=== PATIENT | female | born 1950 ===

== ENCOUNTER → 2019-02-12 08:25 | Outpatient (CLI) | payer OTHER, SELFPAY ==
[2019-02-12 09:32] LABS: Alanine Aminotransferase 20 IU/L (9-52); Albumin 4.2 g/dL (3.5-5.0); Albumin Globulin Ratio 1.6 (1.0-2.8); Alkaline Phosphatase 42 U/L (38-126); Aspartate Aminotransferase 23 IU/L (14-36); BUN Creatinine Ratio 11.4 (6-22); Bilirubin Total 0.6 mg/dL (0.2-1.3); Blood Urea Nitrogen 8 mg/dL (7-17); Calcium 8.9 mg/dL (8.4-10.2); Carbon Dioxide 27 mmol/L (22-32); Chloride 101 mmol/L (98-107); Estimated Glomerular Filt Rate > 60.0 mL/min (>60); Globulin 2.6 g/dL (1.7-4.1); Glucose 87 mg/dL (80-110); HEMOLYSIS < 15 (0-50); Potassium 4.1 mmol/L (3.4-5.1); Sodium 137 mmol/L (137-145); Total Protein 6.8 g/dL (6.3-8.2)
[2019-02-12 09:33] LABS: Vitamin D 25 Hydroxy (D3) 27.6 ng/mL (30.0-100.0)
[2019-02-12 09:41] LABS: Free T3, Triiodothyronine Free 5.13 pg/mL (2.77-5.27); Free T4, Direct Thyroxine 1.65 ng/dL (0.78-2.19)
[2019-02-12 09:54] LABS: Thyroid Stimulating Hormone 0.03 uIU/mL (0.47-4.68)
[2019-02-12 10:29] LABS: Folate 5.7 ng/mL (2.76-20.0); Vitamin B12 669 pg/mL (239-931)
== END ==
PROVIDERS: Family Provider Internal Medicine; PCP Internal Medicine; Visit Provider Psychiatry & Neurology Psychiatry
DX: E03.9 Hypothyroidism, unspecified (principal); F31.9 Bipolar disorder, unspecified; Z13.1 Encounter for screening for diabetes mellitus; Z13.6 Encounter for screening for cardiovascular disorders
CPT/HCPCS: 36415; 80053; 82306; 82607; 82746; 84439; 84443; 84481

== ENCOUNTER → 2019-02-26 15:03 | Outpatient (CLI) | payer OTHER, SELFPAY ==
[2019-02-28 16:13] LABS: Fecal Immunochemical Test NOT DETECTED (NOT DETECTED)
== END ==
PROVIDERS: PCP Internal Medicine; Visit Provider Internal Medicine
DX: Z12.11 Encounter for screening for malignant neoplasm of colon (principal)
CPT/HCPCS: 82274

== ENCOUNTER → 2019-04-17 12:09 | Outpatient (CLI) | payer OTHER, SELFPAY ==
--- NOTE | 2019-04-17 12:11 | DI.RAD.S_ITS ---
PROCEDURE: XR SHOULDER RT MIN 2V INDICATIONS: r shoulder pain TECHNIQUE: 3 views of the shoulder were acquired. COMPARISON: None. FINDINGS: Bones: No fractures or dislocations. No suspicious bony lesions. Visualized ribs appear intact. There may be mild degenerative changes of the right shoulder joints. Soft tissues: Homogeneous calcifications overlying the greater tuberosity of the humeral head are present. IMPRESSION: 1. Calcific tendinitis of the right shoulder. 2. Mild degenerative changes of the right shoulder joints. Dictated by: Naldo Hannah M.D. on 04/17/2019 at 11:45 Approved by: Naldo Hannah M.D. on 04/17/2019 at 11:45
== END ==
PROVIDERS: PCP Internal Medicine; Visit Provider Physician Assistant
DX: M25.511 Pain in right shoulder (principal); M75.31 Calcific tendinitis of right shoulder; M19.011 Primary osteoarthritis, right shoulder
CPT/HCPCS: 73030

== ENCOUNTER → 2019-07-26 16:53 | Outpatient (CLI) | payer OTHER, SELFPAY ==
--- NOTE | 2019-07-26 16:55 | DI.MG.S_ITS ---
BILATERAL DIGITAL SCREENING MAMMOGRAM 3D/2D WITH CAD: 07/26/2019 CLINICAL: Routine screening. Comparison is made to exam dated: 01/24/2018 mammogram - [facility]. The tissue of both breasts is heterogeneously dense. This may lower the sensitivity of mammography. Current study was also evaluated with a Computer Aided Detection (CAD) system. No significant masses, calcifications, or other findings are seen in either breast. There has been no significant interval change. IMPRESSION: NEGATIVE There is no mammographic evidence of malignancy. A 1 year screening mammogram is recommended. This exam was interpreted at Station ID: [id number]. NOTE: For mammograms, a report in lay terms will be sent to the patient. Approximately 15% of breast malignancies will not be visualized mammographically. In the management of a palpable breast mass, a negative mammogram must not discourage biopsy of a clinically suspicious lesion. Electronically Signed By: Geraldine harmon/thomas:08/01/2019 22:27:02 letter sent: Normal Exam ACR BI-RADS Category 1: Negative [id number]
== END ==
PROVIDERS: PCP Internal Medicine; Visit Provider Internal Medicine
DX: Z12.31 Encounter for screening mammogram for malignant neoplasm of breast (principal)
CPT/HCPCS: 77063; 77067

== ENCOUNTER → 2020-05-14 13:37 | Outpatient (CLI) | payer OTHER, SELFPAY ==
[2020-05-15 11:23] LABS: Fecal Immunochemical Test Negative (Negative)
== END ==
PROVIDERS: PCP Internal Medicine; Referring Provider Internal Medicine; Visit Provider Internal Medicine
DX: Z12.11 Encounter for screening for malignant neoplasm of colon (principal)
CPT/HCPCS: 82274

== ENCOUNTER → 2020-05-21 07:42 | Outpatient (CLI) | payer OTHER, SELFPAY ==
[2020-05-21 08:24] LABS: Add Manual Diff / Slide Review NO; Basophils Absolute Auto 0 /uL (0-100); Basophils Percent Auto 0.8 % (0-2); Eosinophils Absolute Auto 300 /uL (0-450); Eosinophils Percent Auto 5.2 % (2-4); Hemoglobin 12.8 g/dL (12.0-16.0); Lymphocytes Absolute Auto 1900 /uL (1100-4500); Lymphocytes Percent Auto 38.9 % (25-40); Mean Corpuscular HGB Conc 33.8 % (30-36); Mean Corpuscular Hemoglobin 33.7 PG (26-34); Mean Corpuscular Volume 99.8 fL (80-100); Monocytes Absolute Auto 600 /uL (0-900); Monocytes Percent Auto 11.5 % (3-14); Neutrophils Absolute Auto 2100 /uL (1500-7000); Neutrophils Percent Auto 43.6 % (50-75); Platelet Count 242 X10^3/uL (150-400); Red Cell Distribution Width 12.6 % (11.6-14.8); White Blood Cell Count 4.9 X10^3/uL (4.5-11.0)
[2020-05-21 08:49] LABS: Erythrocyte Sedimentation Rate 4 MM/HR (0-20)
[2020-05-21 09:02] LABS: Albumin 4.1 g/dL (3.5-5.0); Albumin Globulin Ratio 1.8 (1.0-2.8); Alkaline Phosphatase 55 U/L (38-126); Aspartate Aminotransferase 30 IU/L (14-36); BUN Creatinine Ratio 11.9 (6-22); Bilirubin Total 0.5 mg/dL (0.2-1.3); Blood Urea Nitrogen 7 mg/dL (7-17); C-Reactive Protein Quant < 0.5 mg/dL (<1.0); Calcium 9.7 mg/dL (8.4-10.2); Carbon Dioxide 30 mmol/L (22-32); Chloride 103 mmol/L (98-107); Cholesterol 189 mg/dL (140-199); Estimated Glomerular Filt Rate > 60.0 mL/min (>60); Globulin 2.3 g/dL (1.7-4.1); Glucose 93 mg/dL (80-110); HDL Cholesterol 97 mg/dL (40-60); HEMOLYSIS < 15 (0-50); LDL Cholesterol Calculated 82 mg/dL (<100); Lipase 185 U/L (23-300); Potassium 4.5 mmol/L (3.4-5.1); Sodium 137 mmol/L (137-145); Total Protein 6.4 g/dL (6.3-8.2); Triglycerides 51 mg/dL (35-150)
[2020-05-21 09:29] LABS: TSH w/ Reflex to FT4 < 0.02 uIU/mL (0.47-4.68)
[2020-05-21 14:16] LABS: Alanine Aminotransferase 19 IU/L (<35)
[2020-05-21 15:23] LABS: Free T4, Direct Thyroxine 1.68 ng/dL (0.78-2.19)
== END ==
PROVIDERS: PCP Internal Medicine; Referring Provider Internal Medicine; Visit Provider Internal Medicine
DX: Z13.1 Encounter for screening for diabetes mellitus (principal); Z13.220 Encounter for screening for lipoid disorders; Z13.6 Encounter for screening for cardiovascular disorders; E03.9 Hypothyroidism, unspecified; F41.1 Generalized anxiety disorder; M85.80 Other specified disorders of bone density and structure, unspecified site
CPT/HCPCS: 36415; 80053; 80061; 83690; 84439; 84443; 85025; 85651; 86140

== ENCOUNTER → 2020-09-02 17:04 | Outpatient (CLI) | payer OTHER, SELFPAY ==
[2020-09-02 18:23] LABS: Alanine Aminotransferase 14 IU/L (<35); Albumin Globulin Ratio 1.6 (1.0-2.8); Alkaline Phosphatase 58 U/L (38-126); Aspartate Aminotransferase 24 IU/L (14-36); BUN Creatinine Ratio 22.6 (6-22); Bilirubin Total 0.3 mg/dL (0.2-1.3); Blood Urea Nitrogen 12 mg/dL (7-17); Calcium 9.3 mg/dL (8.4-10.2); Carbon Dioxide 32 mmol/L (22-32); Chloride 101 mmol/L (98-107); Estimated Glomerular Filt Rate > 60.0 mL/min (>60); Globulin 2.5 g/dL (1.7-4.1); Glucose 95 mg/dL (80-110); HEMOLYSIS < 15 (0-50); Potassium 4.3 mmol/L (3.4-5.1); Sodium 135 mmol/L (137-145); Total Protein 6.5 g/dL (6.3-8.2)
[2020-09-02 18:41] LABS: Vitamin D 25 Hydroxy (D3) 35.3 ng/mL (30.0-100.0)
== END ==
PROVIDERS: PCP Internal Medicine; Referring Provider Psychiatry & Neurology Psychiatry; Visit Provider Psychiatry & Neurology Psychiatry
DX: F31.9 Bipolar disorder, unspecified (principal); Z51.81 Encounter for therapeutic drug level monitoring
CPT/HCPCS: 36415; 80053; 82306

== ENCOUNTER → 2020-12-04 13:30 | Outpatient (CLI) | payer OTHER, SELFPAY ==
[2020-12-04] MEDS: COVID-19 VACC #1, MRNA(MOD) 100 MCG/0.5 ML VIAL IM (13:34)
== END ==
PROVIDERS: PCP Internal Medicine; Visit Provider Internal Medicine
DX: Z23 Encounter for immunization (principal)
CPT/HCPCS: 0011A; 91301

== ENCOUNTER → 2021-01-01 13:17 | Outpatient (CLI) | payer OTHER, SELFPAY ==
[2021-01-01] MEDS: COVID-19 VACC #2, MRNA(MOD) 100 MCG/0.5 ML VIAL IM (13:20)
== END ==
PROVIDERS: PCP Internal Medicine; Visit Provider Internal Medicine
DX: Z23 Encounter for immunization (principal)
CPT/HCPCS: 0012A; 91301

== ENCOUNTER → 2021-02-21 10:10 | Outpatient (CLI) | payer OTHER, SELFPAY ==
[2021-02-21 11:04] LABS: COVID19 -Nasal RAPID Negative (Negative)
== END ==
PROVIDERS: PCP Internal Medicine; Visit Provider Physician Assistant
DX: Z20.822 Contact with and (suspected) exposure to COVID-19 (principal)
CPT/HCPCS: 87635

== ENCOUNTER 2021-02-23 18:59 | Emergency (ER) | payer OTHER, SELFPAY ==
[2021-02-23 19:19] VITALS: BP 130/90; PULSE 114; RESP 24; TEMP 38.6; O2SAT 97
--- NOTE | 2021-02-23 19:19 | DI.RAD.S_ITS ---
PROCEDURE: XR CHEST 1V INDICATIONS: suspected sepsis TECHNIQUE: One view of the chest was acquired. COMPARISON: None. FINDINGS: Surgical changes and devices: None. Lungs and pleura: Lungs are clear. No pleural effusions or pneumothorax. Mediastinum: Mediastinal contours appear normal. Heart size is normal. Bones and chest wall: No suspicious bony lesions. Overlying soft tissues appear unremarkable. IMPRESSION: No acute process. Dictated by: Dae Barnes M.D. on 02/23/2021 at 19:54 Approved by: Dae Barnes M.D. on 02/23/2021 at 19:54
--- NOTE | 2021-02-23 19:29 | ED_ITS ---
HPI - SOB/Dyspnea General Chief Complaint: Fever Stated Complaint: COUGHING FEVER DIZZY Time Seen by Provider: 02/23/21 19:07 Source: patient Mode of arrival: Ambulatory Limitations: no limitations History of Present Illness HPI Narrative: 70-year-old female nonsmoker with history of bipolar and hypothyroid presents with her in the chief complaint of a few days of some harsh cough, low-grade fever, nasal congestion and some mild vertiginous symptoms. Patient has no significant shortness of breath or chest pain. She denies nausea, vomiting or diarrhea. She denies any rash. She denies any exposure to persons known to be positive for COVID-19. She has had ?walking pneumonia? in the past and states she feels quite like that. She states she is frequently dizzy and has some fullness in her right ear and feels like her symptoms today are similar to what she has experienced for quite some time. She denies any fall, trauma or other injury. She states her dizziness is made worse by moving her head and by sitting up. MD Complaint: cough Onset (ago): day(s) Severity: mild Treatment prior to arrival: none Related Data Home Medications Medication Instructions Recorded Confirmed cholecalciferol (vitamin D3) 25 2,000 unit PO .EOD cap 12/04/19 01/27/21 mcg (1,000 unit) capsule melatonin 5 mg tablet 2.5 mg PO DAILY 10/27/20 01/27/21 Previous Rx's Medication Instructions Recorded levothyroxine 88 mcg tablet 88 mcg PO QAM #90 tab 09/22/20 liothyronine 5 mcg tablet 5 mcg PO DAILY #90 tab 10/15/20 lamotrigine 100 mg tablet 50 mg PO DAILY #45 tab 12/02/20 doxycycline hyclate 100 mg PO BID #20 tab 02/23/21 Allergies Allergy/AdvReac Type Severity Reaction Status Date / Time Sulfa (Sulfonamide Allergy Unknown RASH Verified 01/27/21 14:03 Antibiotics) [SULFA (SULFONAMIDE ANTIBIOTICS)] quetiapine AdvReac Intermediate agitation, Verified 01/27/21 14:03 hyper during the day Review of Systems Constitutional Constitutional: Denies chills, Denies fatigue, Reports fever(s), Denies frequent falls, Denies lethargy and Denies weakness Eyes Eyes: Denies change in vision, Denies eye discharge, Denies irritation and Denies loss of vision ENT Ears, Nose, Mouth, and Throat: Denies change in voice, Reports dizziness, Reports nasal congestion, Denies neck pain, Denies sore throat and Denies throat swelling Cardiovascular Cardiovascular: Denies chest pain, Denies irregular heart rhythm, Denies lightheadedness, Denies palpitations, Denies dyspnea, Denies dyspnea on exertion and Denies orthopnea Respiratory Respiratory: Reports cough, Denies dyspnea, Denies dyspnea on exertion and Denies wheezing Gastrointestinal Gastrointestinal: Denies abdominal pain, Denies change in bowel habits, Denies diarrhea, Denies nausea and Denies vomiting Musculoskeletal Musculoskeletal: Denies neck pain and Denies numbness Integumentary/Breasts Skin/Breast: Denies pruritus, Denies erythema, Denies rash and Denies wounds Neurologic Neurologic: Denies behavioral changes, Denies confusion, Reports dizziness, Denies frequent falls, Denies loss of vision, Denies numbness and Denies weakness Psychiatric Psychiatric: Denies anxiety, Denies behavioral changes, Denies confusion, Denies depression, Denies homicidal ideation and Denies suicidal ideation Endocrine Endocrine: Denies fatigue, Denies flushing and Denies palpitations Hematologic/Lymphatic Hematologic/Lymphatic: Denies easy bruising Allergic/Immunologic Allergic/Immunologic: Denies urticaria, Denies throat swelling and Denies wheezing Patient History Medical History Acquired hypothyroidism (03/26/16) Empty sella syndrome Generalized anxiety disorder (09/20/17) Osteopenia (06/28/11) Vulvar vestibulitis (06/28/11) Surgical History Status post appendectomy Status post dilation and curettage Status post hysteroscopy Family History Brother Age: 65 Hypertension Mental health problem Brother Age: 63 Mental health problem Father Dementia Grandfather Pneumonia Mother Age: 100 Family history of VA (myocardial infarction) Hypertension Mental health problem Stroke Dementia Grandfather Cancer Sister Age: 70 Mental health problem Social History Smoking Status: Never smoker Smoking Status: Never smoker Exam Narrative Exam Narrative: GENERAL: [70] year old patient appears stated age. Well- nourished, well-developed patient, in mild distress. HEAD: Atraumatic. Normocephalic. EYES: Pupils equal round and reactive. No nystagmus Extraocular motions intact. No scleral icterus. No injection or drainage. ENT: Nose without bleeding, purulent drainage. Throat without erythema, t onsillar hypertrophy or exudate. Airway patent. NECK: Trachea midline. Non tender CARDIOVASCULAR: Regular rate and rhythm without murmurs, gallops, or rubs. RESPIRATORY: Faint crackles in bilateral bases left greater than right. No significant work of breathing or use of accessory muscles GASTROINTESTINAL: Abdomen soft, non-tender, nondistended. EXTREMITIES: No edema or joint tenderness. BACK: Nontender without deformity or crepitance. No flank tenderness. NEURO: AOx3. SKIN: No rash or erythema of visible areas Initial Vital Signs Initial Vital Signs: Vital Signs Temperature 101.5 F H 02/23/21 19:19 Pulse Rate 114 H 02/23/21 19:19 Respiratory Rate 24 02/23/21 19:19 Blood Pressure 130/90 02/23/21 19:19 Pulse Oximetry 97 02/23/21 19:19 Course Orders Ordered: Discontinued Medications Doxycycline Hyclate (Doxycycline Hyclate 100 Mg Tablet) 100 mg PO NOW ONE Stop: 02/23/21 20:45 Last Admin: 02/23/21 20:57 Dose: 100 mg Documented by: ALLY Sodium Chloride (Normal Saline 0.9%) 1,000 mls @ 1,000 mls/hr IV BOLUS ONE Stop: 02/23/21 20:18 Last Infusion: 02/23/21 20:57 Dose: 0 mls/hr Documented by: Admin: 02/23/21 19:45 Dose: 1,000 mls/hr Documented by: ALLY Vital Signs Vital signs: Vital Signs - 8 hr 02/23/21 19:19 Temperature 101.5 F H Pulse Rate 114 H Respiratory Rate 24 Blood Pressure 130/90 Pulse Oximetry 97 MDM - SOB/Dyspnea Lab Data Result diagrams: 02/23/21 19:55 02/23/21 19:55 Labs: Lab Results 02/23/21 02/23/21 02/23/21 Range/Units 19:47 19:47 19:55 WBC 10.7 (4.5-11.0) X10^3/uL RBC 3.88 L (4.0-5.2) X10^6/uL Hgb 12.4 (12.0-16.0) g/dL Hct 37.2 (36-46) % MCV 95.9 (80-100) fL MCH 32.0 (26-34) PG MCHC 33.3 (30-36) % RDW 13.3 (11.6-14.8) % Plt Count 204 (150-400) X10^3/uL Neut % (Auto) 69.2 (50-75) % Lymph % (Auto) 17.4 L (25-40) % Wharton % (Auto) 12.1 (3-14) % Eos % (Auto) 0.9 L (2-4) % Baso % (Auto) 0.4 (0-2) % Neut # (Auto) 7400 H (9670-8320) /uL Lymph # (Auto) 1900 (0806-9525) /uL Wharton # (Auto) 1300 H (0-900) /uL Eos # (Auto) 100 (0-450) /uL Baso # (Auto) 0 (0-100) /uL PT (10.1-12.7) SECONDS INR (0.9-1.3) APTT (26.4-36.2) SECONDS Sodium (137-145) mmol/L Potassium (3.4-5.1) mmol/L Chloride (98-107) mmol/L Carbon Dioxide (22-32) mmol/L BUN (7-17) mg/dL Creatinine (0.52-1.04) mg/dL Estimated GFR (>60) mL/min BUN/Creatinine Ratio (6-22) Glucose (80-110) mg/dL Lactate (0.7-2.1) mmol/L Calcium (8.4-10.2) mg/dL Total Bilirubin (0.2-1.3) mg/dL AST (14-36) IU/L ALT (<35) IU/L Alkaline Phosphatase (38-126) U/L Total Protein (6.3-8.2) g/dL Albumin (3.5-5.0) g/dL Globulin (1.7-4.1) g/dL Albumin/Globulin Ratio (1.0-2.8) Lipase (23-300) U/L Procalcitonin (<0.5) ng/mL Urine RBC 0-1/hpf (0-5/HPF) Urine WBC None seen (0-5/HPF) Urine Bacteria None seen (None) Ur Culture Indicated? Cult not indicated SARS-CoV-2 (PCR) Negative (Negative) 02/23/21 02/23/21 02/23/21 Range/Units 19:55 19:55 19:55 WBC (4.5-11.0) X10^3/uL RBC (4.0-5.2) X10^6/uL Hgb (12.0-16.0) g/dL Hct (36-46) % MCV (80-100) fL MCH (26-34) PG MCHC (30-36) % RDW (11.6-14.8) % Plt Count (150-400) X10^3/uL Neut % (Auto) (50-75) % Lymph % (Auto) (25-40) % Wharton % (Auto) (3-14) % Eos % (Auto) (2-4) % Baso % (Auto) (0-2) % Neut # (Auto) (5783-5080) /uL Lymph # (Auto) (4864-9113) /uL Wharton # (Auto) (0-900) /uL Eos # (Auto) (0-450) /uL Baso # (Auto) (0-100) /uL PT 12.6 (10.1-12.7) SECONDS INR 1.1 (0.9-1.3) APTT 30 (26.4-36.2) SECONDS Sodium 131 L (137-145) mmol/L Potassium 3.8 (3.4-5.1) mmol/L Chloride 99 (98-107) mmol/L Carbon Dioxide 24 (22-32) mmol/L BUN 5 L (7-17) mg/dL Creatinine 0.59 (0.52-1.04) mg/dL Estimated GFR > 60.0 (>60) mL/min BUN/Creatinine Ratio 8.5 (6-22) Glucose 105 (80-110) mg/dL Lactate 0.7 (0.7-2.1) mmol/L Calcium 9.3 (8.4-10.2) mg/dL Total Bilirubin 0.4 (0.2-1.3) mg/dL AST 27 (14-36) IU/L ALT 16 (<35) IU/L Alkaline Phosphatase 69 (38-126) U/L Total Protein 7.2 (6.3-8.2) g/dL Albumin 4.1 (3.5-5.0) g/dL Globulin 3.1 (1.7-4.1) g/dL Albumin/Globulin Ratio 1.3 (1.0-2.8) Lipase 49 (23-300) U/L Procalcitonin 0.04 (<0.5) ng/mL Urine RBC (0-5/HPF) Urine WBC (0-5/HPF) Urine Bacteria (None) Ur Culture Indicated? SARS-CoV-2 (PCR) (Negative) Urine Dip Bedside Urine Glucose Negative Bedside Urine Bilirubin - Negative Bedside Urine Ketone + 15 Urine Specific Sims 1.015 Bedside Urine Occult Blood +/- Bedside Urine pH 6.0 Bedside Urine Protein - Negative Bedside Urine Urobilinogen - Negative Bedside Urine Nitrite - Negative Bedside Urine Leukocytes - Negative Esterase Imaging Data Chest x-ray: Radiologist's Impression: [address] [id number] ReportSigned Patient: Aisha Ricks [facility]#: [id number]: 1950cct:[id number]/Sex: 70 / FDate of Service: 02/23/21Loc: EDAccession Number: [id number] Procedure: XR chest 1V Ordering Provider: Tee House D.O. PROCEDURE: XR CHEST 1V INDICATIONS: suspected sepsis TECHNIQUE: One view of the chest was acquired. COMPARISON: None. FINDINGS: Surgical changes and devices: None. Lungs and pleura: Lungs are clear. No pleural effusions or pneumothorax. Mediastinum: Mediastinal contours appear normal. Heart size is normal. Bones and chest wall: No suspicious bony lesions. Overlying soft tissues ap pear unremarkable. IMPRESSION: No acute process. Dictated by: Dae Barnes M.D. on 02/23/2021 at 19:54 Approved by: Dae Barnes M.D. on 02/23/2021 at 19:54 [facility] Narrative Medical decision making narrative: Patient is not septic and has no significant work of breathing nor need for supplemental oxygen. Though her chest x-ray is clear she does have a cough, fever and some harsh lung sounds which would suggest she clinically has pneumonia and would therefore benefit from antibiotics. She has been given return precautions and has had questions answered to her apparent satisfaction Discharge Plan Departure Patient Disposition: Home Clinical Impression: Atypical pneumonia Instructions: DI for Atypical Pneumonia Activity Restrictions/Additional Instructions: *You have been diagnosed with [atypical pneumonia, reassuring exam, labs and chest Xray] *What to do: *Take medications as directed *Follow up with your primary care provider in 2-3 days, call for an appointment. Let them know you were seen in the Emergency Department and that we ask that you be seen in follow up *Return to ER if you should have any new, worsening or concerning symptoms, such as [increased shortness of breath, chest pain, or other bothersome symptoms ] Prescriptions: New doxycycline hyclate 100 mg tablet 100 mg PO BID Qty: 20 RF: 0 No Action lamotrigine 100 mg tablet 50 mg PO DAILY Qty: 45 RF: 1 cholecalciferol (vitamin D3) 25 mcg (1,000 unit) capsule 2,000 unit PO .EOD RF: 0 melatonin 5 mg tablet 2.5 mg PO DAILY RF: 0 levothyroxine 88 mcg tablet 88 mcg PO QAM Qty: 90 RF: 2 liothyronine [Cytomel] 5 mcg tablet 5 mcg PO DAILY Qty: 90 RF: 2 Referrals: Jp Hayes MD [Primary Care Provider] -
[2021-02-23] MEDS: SODIUM CHLORIDE 0.9% 1,000 ML 1000 ML IV (19:45)
[2021-02-23 20:03] VITALS: PULSE 91; O2SAT 98
[2021-02-23 20:06] LABS: Bacteria Urine None Seen; WBC Urine None Seen (0-5/HPF)
[2021-02-23 20:09] LABS: Add Manual Diff / Slide Review NO; Basophils Absolute Auto 0 /uL (0-100); Basophils Percent Auto 0.4 % (0-2); Eosinophils Absolute Auto 100 /uL (0-450); Eosinophils Percent Auto 0.9 % (2-4); Hematocrit 37.2 % (36-46); Hemoglobin 12.4 g/dL (12.0-16.0); Lymphocytes Absolute Auto 1900 /uL (1100-4500); Lymphocytes Percent Auto 17.4 % (25-40); Mean Corpuscular HGB Conc 33.3 % (30-36); Mean Corpuscular Volume 95.9 fL (80-100); Monocytes Absolute Auto 1300 /uL (0-900); Monocytes Percent Auto 12.1 % (3-14); Neutrophils Absolute Auto 7400 /uL (1500-7000); Neutrophils Percent Auto 69.2 % (50-75); Platelet Count 204 X10^3/uL (150-400); Red Blood Cell Count 3.88 X10^6/uL (4.0-5.2); Red Cell Distribution Width 13.3 % (11.6-14.8); White Blood Cell Count 10.7 X10^3/uL (4.5-11.0)
[2021-02-23 20:17] LABS: INR 1.1 (0.9-1.3); Prothrombin Time 12.6 SECONDS (10.1-12.7)
[2021-02-23 20:19] LABS: PTT Partial Thromboplastin Tim 30 SECONDS (26.4-36.2)
[2021-02-23 20:22] LABS: Lactate (Lactic Acid) 0.7 mmol/L (0.7-2.1)
[2021-02-23 20:23] LABS: Alanine Aminotransferase 16 IU/L (<35); Albumin 4.1 g/dL (3.5-5.0); Albumin Globulin Ratio 1.3 (1.0-2.8); Alkaline Phosphatase 69 U/L (38-126); Aspartate Aminotransferase 27 IU/L (14-36); BUN Creatinine Ratio 8.5 (6-22); Bilirubin Total 0.4 mg/dL (0.2-1.3); Blood Urea Nitrogen 5 mg/dL (7-17); Calcium 9.3 mg/dL (8.4-10.2); Carbon Dioxide 24 mmol/L (22-32); Chloride 99 mmol/L (98-107); Estimated Glomerular Filt Rate > 60.0 mL/min (>60); Globulin 3.1 g/dL (1.7-4.1); Glucose 105 mg/dL (80-110); HEMOLYSIS < 15 (0-50); Lipase 49 U/L (23-300); Potassium 3.8 mmol/L (3.4-5.1); Sodium 131 mmol/L (137-145); Total Protein 7.2 g/dL (6.3-8.2)
[2021-02-23 20:30] VITALS: O2SAT 99
[2021-02-23 20:31] LABS: COVID19 -Nasal RAPID Negative (Negative)
[2021-02-23 20:39] LABS: Procalcitonin 0.04 ng/mL (<0.5)
[2021-02-23 20:42] LABS: Culture Indicated Urine Cult Not Indicated; RBC Urine 0-1/HPF (0-5/HPF)
[2021-02-23 20:57] VITALS: BP 116/66; PULSE 92; RESP 20; TEMP 37.1; O2SAT 98
[2021-02-23] MEDS: DOXYCYCLINE HYCLATE 100 MG TABLET PO (20:57)
== END 2021-02-23 21:14 | disposition home or self-care (01) ==
PROVIDERS: Emergency Provider Emergency Medicine; PCP Internal Medicine
DX: J18.9 Pneumonia, unspecified organism (principal); R42 Dizziness and giddiness; Z20.822 Contact with and (suspected) exposure to COVID-19
CPT/HCPCS: 36415; 71045; 80053; 81003; 81015; 83605; 83690; 84145; 85025; 85610; 85730; 87040; 87635; 96360; 99284; C9803

== ENCOUNTER → 2021-03-27 11:01 | Outpatient (CLI) | payer OTHER, SELFPAY ==
[2021-03-27 12:32] LABS: Free T3, Triiodothyronine Free 3.95 pg/mL (2.77-5.27); Free T4, Direct Thyroxine 1.23 ng/dL (0.78-2.19)
== END ==
PROVIDERS: PCP Internal Medicine; Referring Provider Psychiatry & Neurology Psychiatry; Visit Provider Psychiatry & Neurology Psychiatry
DX: E03.9 Hypothyroidism, unspecified (principal); E23.6 Other disorders of pituitary gland; F31.9 Bipolar disorder, unspecified
CPT/HCPCS: 36415; 84439; 84481

== ENCOUNTER → 2021-08-03 09:36 | Outpatient (CLI) | payer OTHER, SELFPAY ==
[2021-08-03 13:40] LABS: COVID19 -Nasal RAPID Negative (Negative)
== END ==
PROVIDERS: PCP Internal Medicine; Visit Provider Nurse Practitioner Family
DX: Z20.822 Contact with and (suspected) exposure to COVID-19 (principal); Z01.812 Encounter for preprocedural laboratory examination
CPT/HCPCS: 87635

== ENCOUNTER 2021-08-04 10:46 | Day surgery (SDC) | payer OTHER, SELFPAY ==
[2021-08-04 11:17] VITALS: BP 112/73; PULSE 75; RESP 18; TEMP 35.9; O2SAT 96; BMI 22.1
[2021-08-04] MEDS: CATARACT EYE COMPOUND (10 DROPS/SYRINGE) 3 DROPS EYE-OP (11:27)
[2021-08-04] MEDS: PROPARACAINE 0.5% OPHTH SOL 2 DROPS EYE-OP (11:27)
--- NOTE | 2021-08-04 12:25 | PM.PREOP ---
Pre-operative Note Interval Note History & Physical reviewed/Exam performed by Physician: Yes Changes to H&P: No
--- NOTE | 2021-08-04 12:25 | PM.OP.1 ---
Operative Date/Time/Diagnoses Pre-op diagnosis: Nuclear cataract right eye Procedure & Clinicians Procedure: Cataract Surgery Same procedure as scheduled: Yes Surgeon: Parker Wu Anesthesia Type: MAC +/- and Sedation Operative Notes Procedure in detail: Patient brought to the operating suite. Tetracaine drops placed in the right eye. Patient was prepped and draped in sterile manner. Wire lid speculum was placed in the eye. Betadine drops were placed on the eye. This was irrigated. Lidocaine jelly was placed on the eye. A paracentesis port was created with a side-port blade. 0.1 mL 1% preservative free lidocaine was injected into the anterior chamber. The anterior chamber was deepened with viscoelastic. 2.6 mm keratome was used to create a temporal clear corneal incision. Cystotome and Utrata forceps were used to create continuous tear capsulorrhexis. Balanced salt solution was used to hydro dissect the nucleus. The phacoemulsification handpiece was inserted and the nucleus was removed using the stop and chop technique. The irrigation aspiration handpiece was inserted and the remaining cortex was removed. Anterior chamber was deepened with viscoelastic. An Echeverria DFR00V intraocular lens with a power of 21.0 was injected into the capsular bag. Irrigation aspiration handpiece was inserted and the remaining viscoelastic was removed. Incision was hydrated with balanced salt solution and found to be leak free with pressure with Weck-Yanira sponges. 0.1 mL Vigamox injected anterior chamber. 0.3 mL Kenalog 10 mg was injected subconjunctivally. Lid speculum was removed. The patient left the operating room in excellent condition. Complications: none Post-operative Condition: stable Disposition: same day surgery
[2021-08-04] MEDS: HYALURONATE SODIUM 30 MG-10 MG/ML SYRINGES 1 BOX INTRAOCULA (12:45)
[2021-08-04] MEDS: LIDOCAINE 2% (GLYDO) 6 ML GEL TOP (12:45)
[2021-08-04] MEDS: PHENYLEPHRINE/LIDOCAINE VIAL (OR) 0.2 ML EYE-OP (12:46)
[2021-08-04] MEDS: MOXIFLOXACIN INJ 4 MG/0.8 ML VIAL 0.5 MG EYE-OP (12:46)
[2021-08-04] MEDS: TETRACAINE 0.5% OPHTH DROPS 4 ML 2 DROPS EYE-OP (12:47)
[2021-08-04] MEDS: TRIAMCINOLONE 50 MG/5 ML VIAL INJ (12:47)
[2021-08-04] MEDS: BALANCED SALT IRRIG SOLN NO.2 500 ML, EPINEPHrine 1 MG IRR (12:47)
[2021-08-04 12:55] VITALS: BP 106/72; PULSE 70; RESP 16; TEMP 37.2; O2SAT 99
== END 2021-08-04 13:22 | disposition home or self-care (01) ==
PROVIDERS: PCP Internal Medicine; Referring Provider Ophthalmology; Visit Provider Ophthalmology
PROC: (CPT 66984; principal; 2021-08-04 12:45)
DX: H25.11 Age-related nuclear cataract, right eye (principal); F41.9 Anxiety disorder, unspecified
CPT/HCPCS: 66984; J0171; J2250; J3301; V2787; V2788

== ENCOUNTER → 2021-08-17 08:53 | Outpatient (CLI) | payer OTHER, SELFPAY ==
[2021-08-17 10:59] LABS: COVID19 -Nasal RAPID Negative (Negative)
== END ==
PROVIDERS: PCP Internal Medicine; Visit Provider Nurse Practitioner Family
DX: Z20.822 Contact with and (suspected) exposure to COVID-19 (principal); Z01.812 Encounter for preprocedural laboratory examination
CPT/HCPCS: 87635

== ENCOUNTER 2021-08-18 00:18 | Emergency (ER) | payer OTHER, SELFPAY ==
[2021-08-18 01:09] VITALS: BP 103/58; PULSE 92; RESP 19; TEMP 37.2; O2SAT 96; BMI 21.2
--- NOTE | 2021-08-18 01:21 | DI.RAD.S_ITS ---
PROCEDURE: XR WRIST LT MIN 3V INDICATIONS: pain, swelling TECHNIQUE: 4 views of the wrist were acquired. COMPARISON: None. FINDINGS: Bones: No fractures or dislocations. No suspicious bony lesions. Scattered degenerative subchondral sclerosis and spurring. Soft tissues: No suspicious soft tissue calcifications. IMPRESSION: No acute findings. No fracture. If the patient's symptoms do not improve recommend followup radiographs in 10 days to assess for healing sclerosis/occult injury. Dictated by: Alexy Barnes M.D. on 08/18/2021 at 1:53 Approved by: Alexy Barnes M.D. on 08/18/2021 at 1:55
--- NOTE | 2021-08-18 01:38 | ED.EXTPRO ---
HPI - Extremity Problem General Chief complaint: Extremity Problem,Nontraumatic Stated complaint: left hand/wrist x4 hours Time Seen by Provider: 08/18/21 00:51 Source: patient Mode of arrival: Ambulatory History of Present Illness HPI Narrative: 70-year-old female nonsmoker with history of bipolar, insomnia, empty sella syndrome presents with her in the chief complaint of a relatively sudden onset left hand and wrist pain this evening. She denies any trauma or injury. She denies any obvious overuse or repetitive motion. She complains of significant pain with any range of motion of her wrist as well as swelling on the volar aspect of her wrist followed by pain, numbness and tingling in her fingers and extending up to her elbow and sometimes shoulder. She denies any history of the same. She has had no fever chills or other systemic findings. She is otherwise well and free of complaint Related Data Home Medications Medication Instructions Recorded Confirmed cholecalciferol (vitamin D3) 25 2,000 unit PO .EOD cap 12/04/19 08/04/21 mcg (1,000 unit) capsule melatonin 5 mg tablet 5 mg PO DAILY tab 03/02/21 08/04/21 Previous Rx's Medication Instructions Recorded lamotrigine 200 mg tablet 200 mg PO BEDTIME #90 tab 05/29/21 levothyroxine 88 mcg tablet 88 mcg PO QAM #90 tab 06/23/21 liothyronine 5 mcg tablet (Cytomel) 5 mcg PO DAILY #90 tab 07/27/21 hydrocodone 5 mg-acetaminophen 325 1 tab PO Q4-6H PRN #10 tab 08/18/21 mg tablet Allergies Allergy/AdvReac Type Severity Reaction Status Date / Time Sulfa (Sulfonamide Allergy Unknown RASH Verified 08/18/21 01:09 Antibiotics) [SULFA (SULFONAMIDE ANTIBIOTICS)] quetiapine AdvReac Intermediate agitation, Verified 08/18/21 01:09 hyper during the day Review of Systems Review of Systems Narrative: GENERAL: Denies chills, fatigue, malaise, fever, sweats. HEENT: Denies sinus pain, ear pain, sore throat, difficulty swallowing, dizziness. RESPIRATORY: Denies dyspnea, cough, wheezing, hemoptysis, sputum. CARDIOVASCULAR: Denies chest pain, palpitations, orthopnea, edema, GASTROINTESTINAL: Denies nausea, vomiting, abdominal pain, diarrhea, constipation, melena. : Denies dysuria, frequency, incontinence, hematuria, urinary retention. MUSCULOSKELETAL: See HPI SKIN: Denies rash, skin lesions, or other NEUROLOGIC: See HPI PSYCHIATRIC: No concerning psychosocial issues. 12 point review of systems is negative except for those stated above Patient History Medical History (Updated 08/18/21 @ 04:19 by Tee House DO) Acquired hypothyroidism (03/26/16) Empty sella syndrome Generalized anxiety disorder (09/20/17) Osteopenia (06/28/11) Vulvar vestibulitis (06/28/11) Surgical History Status post appendectomy Status post dilation and curettage Status post hysteroscopy Family History Brother Age: 66 Hypertension Mental health problem Brother Age: 64 Mental health problem Father Dementia Grandfather Pneumonia Mother Age: 101 Family history of [place] (myocardial infarction) Hypertension Mental health problem Stroke Dementia Grandfather Cancer Sister Age: 71 Mental health problem Social History household members: spouse Smoking Status: Never smoker alcohol intake: current Smoking Status: Never smoker alcohol intake frequency: 0-2 drinks per day Substance Use Type: does not use Exam Narrative Exam Narrative: GENERAL: [70 year old patient appears stated age. Well-developed patient, in mild distress. Anxious, rubbing her and, clearly in pain HEAD: Atraumatic. Normocephalic. EYES: Pupils equal round and reactive. Extraocular motions intact. No scleral icterus. No injection or drainage. ENT: Nose without bleeding, purulent drainage. Throat without erythema, tonsillar hypertrophy or exudate. Airway patent. NECK: Trachea midline. Non tender CARDIOVASCULAR: Regular rate and rhythm without murmurs, gallops, or rubs. RESPIRATORY: Clear to auscultation. Breath sounds equal bilaterally. No wheezes, rales, or rhonchi. GASTROINTESTINAL: Abdomen soft, non-tender, nondistended. EXTREMITIES: Minimal swelling overlying carpals on volar surface of left wrist without induration, erythema, warmth or fluctuance. Cap refill less than 2 seconds in all fingers, good color, warm pink and dry. Full range of motion in all fingers, active range of motion exquisitely tender at the wrist, passive range of motion greatly improved but chemicals distiller. Radial and ulnar pulses intact. Sensation intact BACK: Nontender without deformity or crepitance. No flank tenderness. NEURO: AOx3. SKIN: No rash or erythema of visible areas Initial Vital Signs Initial Vital Signs: Vital Signs Temperature 98.9 F 08/18/21 01:09 Pulse Rate 92 H 08/18/21 01:09 Respiratory Rate 19 08/18/21 01:09 Blood Pressure 103/58 L 08/18/21 01:09 Pulse Oximetry 96 08/18/21 01:09 Course Orders Ordered: Discontinued Medications Hydrocodone Bitart/Acetaminophen (Hydrocodone/Acet 5/325 Prepack) 1 bottle MISC SEEINSTR ONE Stop: 08/18/21 04:17 Last Admin: 08/18/21 04:38 Dose: 1 bottle Documented by: ALLY Ketorolac Tromethamine (Ketorolac 30 Mg/Ml Vial) 15 mg IV NOW ONE Stop: 08/18/21 01:22 Last Admin: 08/18/21 01:50 Dose: 15 mg Documented by: ALLY Vital Signs Vital signs: Vital Signs - 8 hr 08/18/21 01:09 Temperature 98.9 F Pulse Rate 92 H Respiratory Rate 19 Blood Pressure 103/58 L Pulse Oximetry 96 MDM - Extremity (Nontraumatic) Lab Data Result diagrams: 08/18/21 01:47 08/18/21 01:47 Labs: Lab Results 08/18/21 08/18/21 08/18/21 Range/Units 01:47 01:47 01:47 WBC 11.6 H (4.5-11.0) X10^3/uL RBC 3.86 L (4.0-5.2) X10^6/uL Hgb 12.2 (12.0-16.0) g/dL Hct 37.8 (36-46) % MCV 97.9 (80-100) fL MCH 31.6 (26-34) PG MCHC 32.3 (30-36) % RDW 13.2 (11.6-14.8) % Plt Count 267 (150-400) X10^3/uL Neut % (Auto) 82.2 H (50-75) % Lymph % (Auto) 8.6 L (25-40) % [place] % (Auto) 4.6 (3-14) % Eos % (Auto) 3.7 (2-4) % Baso % (Auto) 0.9 (0-2) % Neut # (Auto) 9500 H (1001-3305) /uL Lymph # (Auto) 1000 L (1676-6409) /uL [place] # (Auto) 500 (0-900) /uL Eos # (Auto) 400 (0-450) /uL Baso # (Auto) 100 (0-100) /uL ESR 4 (0-20) MM/HR Sodium 134 L (137-145) mmol/L Potassium 3.7 (3.4-5.1) mmol/L Chloride 102 (98-107) mmol/L Carbon Dioxide 25 (22-32) mmol/L BUN 12 (7-17) mg/dL Creatinine 0.55 (0.52-1.04) mg/dL Estimated GFR > 60.0 (>60) mL/min BUN/Creatinine Ratio 21.8 (6-22) Glucose 174 H (80-110) mg/dL Calcium 9.3 (8.4-10.2) mg/dL C-Reactive Protein < 0.5 (<1.0) mg/dL Imaging Data Extremity x-ray #1: Radiologist's Impression: Launch?[place] [address] XRay Report Signed Patient: Aisha Ricks MR#: [id number] : 1950 Acct:[id number] Age/Sex: 70 / F Date of Service: 08/18/21 Loc: ED Accession Number: [id number] ?? Procedure: XR wrist LT min 3V Ordering Provider: Tee House D.O. PROCEDURE:? XR WRIST LT MIN 3V ? INDICATIONS: pain, swelling ? TECHNIQUE:? 4 views of the wrist were acquired.? ? COMPARISON:? None. ? FINDINGS:? ? Bones:? No fractures or dislocations.? No suspicious bony lesions.? Scattered degenerative subchondral sclerosis and spurring.? ? Soft tissues:? No suspicious soft tissue calcifications.? ? IMPRESSION:? No acute findings. No fracture. If the patient's symptoms do not improve recommend followup radiographs in 10 days to assess for healing sclerosis/occult injury. ? ? ? Dictated by: Alexy Barnes M.D. on 08/18/2021 at 1:53 ? ? Approved by: Alexy Barnes M.D. on 08/18/2021 at 1:55 ? [facility] Narrative Medical decision making narrative: Patient with significant pain on the volar aspect of her left wrist in the absence of injury. There is a minimal amount of swelling that is noted. She has intact sensation, cap refill less than 2 seconds, good color and palpable pulses. X-ray is unremarkable and there is no evidence of fracture or dislocation. The description of her discomfort as well as physical exam and imaging raises suspicion of carpal tunnel syndrome though she does deny any repetitive motion or overuse type syndrome other diagnoses such as infection, arterial or venous occlusion considered but thought unlikely given her presentation. Her symptoms were greatly improved after above-stated medications and the wrist splint. We did discuss the potential utility of advanced imaging but sure the opinion that it is not indicated at this time. She has been given return precautions and questions have been answered to her apparent satisfaction Discharge Plan Departure Patient Disposition: Home Clinical Impression: Carpal tunnel syndrome on left Acute wrist pain Qualifiers: Laterality: left Qualified Code(s): M25.532 - Pain in left wrist Instructions: DI for Carpal Tunnel Syndrome Activity Restrictions/Additional Instructions: *You have been diagnosed with [left wrist pain and swelling with numbness and tingling in her fingers is most likely due to an early and acute carpal tunnel syndrome *What to do: *Please continue to take your regular medications as directed. [ x] New medication prescriptions sent to your pharmacy: [[facility] in [place]] [ ] New medication written as a paper prescription [ ] No new medications given *Please follow up with your primary care provider in 2-3 days, call for an appointment. Let them know you were seen in the Emergency Department and that we ask that you be seen in follow up. We will electronically transmit a record of today's note if your PCP is in our system *If you do not have a primary care provider please contact the [facility] Resource line at [phone]. They will ask some questions about your medical history and help get you set up with a doctor in the community. *Return to Emergency Department if you should have any new, worsening or concerning symptoms, such as [fever greater than 101 F, shaking chills, worsening pain, persistent vomiting or other bothersome symptoms] You have been prescribed a short course of narcotic medications. These are potentially dangerous and addictive medications that should be used carefully. While on these medications you cannot drive or operate heavy machinery. Additionally, you cannot sign legal documents or perform any duties such as this. 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 Please understand that we cannot provide further refills of narcotics or controlled substances through the ED and your pain management will need to be through your Primary Care Provider Prescriptions: New hydrocodone-acetaminophen 5-325 mg tablet 1 tab PO Q4-6H PRN (Reason: pain) Qty: 10 RF: 0 No Action lamotrigine 200 mg tablet 200 mg PO BEDTIME Qty: 90 RF: 1 cholecalciferol (vitamin D3) 25 mcg (1,000 unit) capsule 2,000 unit PO .EOD RF: 0 melatonin 5 mg tablet 5 mg PO DAILY RF: 0 levothyroxine 88 mcg tablet 88 mcg PO QAM Qty: 90 RF: 2 liothyronine [Cytomel] 5 mcg tablet 5 mcg PO DAILY Qty: 90 RF: 2 Referrals: Jp Hayes MD [Primary Care Provider] -
[2021-08-18] MEDS: KETOROLAC 30 MG/ML VIAL 15 MG IV (01:50)
[2021-08-18 01:57] LABS: Add Manual Diff / Slide Review NO; Basophils Absolute Auto 100 /uL (0-100); Basophils Percent Auto 0.9 % (0-2); Eosinophils Absolute Auto 400 /uL (0-450); Eosinophils Percent Auto 3.7 % (2-4); Hematocrit 37.8 % (36-46); Hemoglobin 12.2 g/dL (12.0-16.0); Lymphocytes Absolute Auto 1000 /uL (1100-4500); Lymphocytes Percent Auto 8.6 % (25-40); Mean Corpuscular HGB Conc 32.3 % (30-36); Mean Corpuscular Hemoglobin 31.6 PG (26-34); Mean Corpuscular Volume 97.9 fL (80-100); Monocytes Absolute Auto 500 /uL (0-900); Monocytes Percent Auto 4.6 % (3-14); Neutrophils Absolute Auto 9500 /uL (1500-7000); Neutrophils Percent Auto 82.2 % (50-75); Platelet Count 267 X10^3/uL (150-400); Red Blood Cell Count 3.86 X10^6/uL (4.0-5.2); Red Cell Distribution Width 13.2 % (11.6-14.8); White Blood Cell Count 11.6 X10^3/uL (4.5-11.0)
[2021-08-18 02:03] LABS: BUN Creatinine Ratio 21.8 (6-22); Blood Urea Nitrogen 12 mg/dL (7-17); C-Reactive Protein Quant < 0.5 mg/dL (<1.0); Calcium 9.3 mg/dL (8.4-10.2); Carbon Dioxide 25 mmol/L (22-32); Chloride 102 mmol/L (98-107); Estimated Glomerular Filt Rate > 60.0 mL/min (>60); Glucose 174 mg/dL (80-110); HEMOLYSIS < 15 (0-50); Potassium 3.7 mmol/L (3.4-5.1); Sodium 134 mmol/L (137-145)
[2021-08-18 02:31] LABS: Erythrocyte Sedimentation Rate 4 MM/HR (0-20)
[2021-08-18] MEDS: HYDROCODONE/ACET 5/325 PREPACK 1 BOTTLE MISC (04:38)
[2021-08-18 05:14] VITALS: BP 112/68; PULSE 66; RESP 16; O2SAT 100
== END 2021-08-18 04:49 | disposition home or self-care (01) ==
PROVIDERS: Emergency Provider Emergency Medicine; PCP Internal Medicine
DX: G56.02 Carpal tunnel syndrome, left upper limb (principal); M25.532 Pain in left wrist
CPT/HCPCS: 36415; 73110; 80048; 85025; 85651; 86140; 96374; 99284; J1885

== ENCOUNTER → 2021-09-11 13:14 | Outpatient (CLI) | payer OTHER, SELFPAY ==
[2021-09-11] MEDS: COVID-19 VACC #3, MRNA(MOD) 50 MCG/0.25 ML VIAL IM (13:19)
== END ==
PROVIDERS: PCP Internal Medicine; Visit Provider Internal Medicine
DX: Z23 Encounter for immunization (principal)
CPT/HCPCS: 0013A; 91301

== ENCOUNTER → 2021-09-14 10:55 | Outpatient (CLI) | payer OTHER, SELFPAY ==
[2021-09-14 15:43] LABS: COVID19 -Nasal RAPID Negative (Negative)
== END ==
PROVIDERS: PCP Internal Medicine; Referring Provider Physician Assistant; Visit Provider Physician Assistant
DX: Z20.822 Contact with and (suspected) exposure to COVID-19 (principal); Z01.812 Encounter for preprocedural laboratory examination
CPT/HCPCS: 87635

== ENCOUNTER 2021-09-15 06:57 | Day surgery (SDC) | payer OTHER, SELFPAY ==
[2021-09-15 07:22] VITALS: BP 108/63; PULSE 77; RESP 16; TEMP 36.7; O2SAT 100; BMI 22.6
[2021-09-15] MEDS: PROPARACAINE 0.5% OPHTH SOL 2 DROPS EYE-OP (07:28)
[2021-09-15] MEDS: CATARACT EYE COMPOUND (10 DROPS/SYRINGE) 3 DROPS EYE-OP (07:29)
--- NOTE | 2021-09-15 08:03 | PM.PREOP ---
Pre-operative Note Interval Note History & Physical reviewed/Exam performed by Physician: Yes Changes to H&P: No
--- NOTE | 2021-09-15 08:03 | PM.OP.1 ---
Operative Date/Time/Diagnoses Pre-op diagnosis: Nuclear Cataract Left eye Post-op diagnosis: same Procedure & Clinicians Same procedure as scheduled: Yes Surgeon: Parker Wu Anesthesia Type: MAC +/- and Sedation Operative Notes Procedure in detail: Patient brought to the operating suite. Tetracaine drops placed in the left eye. Patient was prepped and draped in sterile manner. Wire lid speculum was placed in the eye. Betadine drops were placed on the eye. This was irrigated. Lidocaine jelly was placed on the eye. A paracentesis port was created with a side-port blade. 0.1 mL 1% preservative free lidocaine was injected into the anterior chamber. The anterior chamber was deepened with viscoelastic. 2.6 mm keratome was used to create a temporal clear corneal incision. Cystotome and Utrata forceps were used to create continuous tear capsulorrhexis. Balanced salt solution was used to hydro dissect the nucleus. The phacoemulsification handpiece was inserted and the nucleus was removed using the stop and chop technique. The irrigation aspiration handpiece was inserted and the remaining cortex was removed. Anterior chamber was deepened with viscoelastic. An Echeverria DFR00V intraocular lens with a power of 22.0 was injected into the capsular bag. Irrigation aspiration handpiece was inserted and the remaining viscoelastic was removed. Incision was hydrated with balanced salt solution and found to be leak free with pressure with Weck-Yanira sponges. 0.1 mL Vigamox injected anterior chamber. 0.3 mL Kenalog 10 mg was injected subconjunctivally. Lid speculum was removed. The patient left the operating room in excellent condition. Complications: none Post-operative Condition: stable Disposition: same day surgery
[2021-09-15] MEDS: HYALURONATE SODIUM 30 MG-10 MG/ML SYRINGES 1 BOX INTRAOCULA (08:21)
[2021-09-15] MEDS: BALANCED SALT IRRIG SOLN NO.2 500 ML, EPINEPHrine 1 MG IRR (08:22)
[2021-09-15] MEDS: LIDOCAINE 2% (GLYDO) 6 ML GEL TOP (08:22)
[2021-09-15] MEDS: PHENYLEPHRINE/LIDOCAINE VIAL (OR) 0.2 ML EYE-OP (08:22)
[2021-09-15] MEDS: MOXIFLOXACIN INJ 4 MG/0.8 ML VIAL 0.5 MG EYE-OP (08:22)
[2021-09-15] MEDS: TETRACAINE 0.5% OPHTH DROPS 4 ML 2 DROPS EYE-OP (08:22)
[2021-09-15] MEDS: TRIAMCINOLONE 50 MG/5 ML VIAL INJ (08:23)
[2021-09-15 08:43] VITALS: BP 104/64; PULSE 71; RESP 16; TEMP 36.6; O2SAT 97
--- NOTE | 2021-09-15 08:49 | SUR.PHASEII ---
Pt ready to go, ride available, left unit in stable condition.
== END 2021-09-15 08:55 | disposition home or self-care (01) ==
PROVIDERS: PCP Internal Medicine; Referring Provider Ophthalmology; Visit Provider Ophthalmology
PROC: (CPT 66984; principal; 2021-09-15 08:15)
DX: H25.12 Age-related nuclear cataract, left eye (principal); F41.9 Anxiety disorder, unspecified; E03.9 Hypothyroidism, unspecified
CPT/HCPCS: 66984; J0171; J2250; J3010; J3301; V2788

== ENCOUNTER → 2022-02-12 07:29 | Outpatient (CLI) | payer OTHER, SELFPAY ==
[2022-02-12 08:13] LABS: Add Manual Diff / Slide Review NO; Basophils Absolute Auto 0 /uL (0-100); Basophils Percent Auto 0.8 % (0-2); Eosinophils Absolute Auto 200 /uL (0-450); Eosinophils Percent Auto 4.4 % (2-4); Hematocrit 37.8 % (36-46); Hemoglobin 12.7 g/dL (12.0-16.0); Lymphocytes Absolute Auto 2100 /uL (1100-4500); Lymphocytes Percent Auto 43.7 % (25-40); Mean Corpuscular HGB Conc 33.7 % (30-36); Mean Corpuscular Hemoglobin 32.6 PG (26-34); Mean Corpuscular Volume 96.8 fL (80-100); Monocytes Absolute Auto 500 /uL (0-900); Monocytes Percent Auto 10.1 % (3-14); Neutrophils Absolute Auto 2000 /uL (1500-7000); Platelet Count 237 X10^3/uL (150-400); Red Cell Distribution Width 12.8 % (11.6-14.8); White Blood Cell Count 4.8 X10^3/uL (4.5-11.0)
[2022-02-12 08:28] LABS: Alanine Aminotransferase 17 IU/L (<35); Albumin Globulin Ratio 1.7 (1.0-2.8); Alkaline Phosphatase 61 U/L (38-126); Aspartate Aminotransferase 26 IU/L (14-36); BUN Creatinine Ratio 13.2 (6-22); Bilirubin Total 0.5 mg/dL (0.2-1.3); Blood Urea Nitrogen 9 mg/dL (7-17); Calcium 8.7 mg/dL (8.4-10.2); Carbon Dioxide 28 mmol/L (22-32); Chloride 105 mmol/L (98-107); Estimated Glomerular Filt Rate > 60.0 mL/min (>60); Globulin 2.4 g/dL (1.7-4.1); Glucose 92 mg/dL (80-110); HEMOLYSIS < 15 (0-50); Sodium 139 mmol/L (137-145); Total Protein 6.4 g/dL (6.3-8.2)
[2022-02-12 08:45] LABS: Free T3, Triiodothyronine Free 4.06 pg/mL (2.77-5.27); Free T4, Direct Thyroxine 1.43 ng/dL (0.78-2.19)
[2022-02-12 08:58] LABS: Thyroid Stimulating Hormone < 0.015 uIU/mL (0.47-4.68)
[2022-02-15 12:09] LABS: Fecal Immunochemical Test Negative (Negative)
== END ==
PROVIDERS: PCP Internal Medicine; Referring Provider Internal Medicine; Visit Provider Internal Medicine
DX: E03.9 Hypothyroidism, unspecified (principal); F41.1 Generalized anxiety disorder; R63.5 Abnormal weight gain; Z12.11 Encounter for screening for malignant neoplasm of colon
CPT/HCPCS: 36415; 80053; 82274; 84439; 84443; 84481; 85025

== ENCOUNTER → 2023-03-11 14:58 | Outpatient (CLI) | payer OTHER, SELFPAY ==
--- NOTE | 2023-03-11 | DI.MG.S_ITS ---
BILATERAL DIGITAL SCREENING MAMMOGRAM 3D/2D WITH CAD: 03/11/2023 CLINICAL: Routine screening. Comparison is made to exams dated: 07/26/2019 mammogram - [facility], 01/24/2018 mammogram, and 12/16/2014 mammogram - [facility]. Both breasts are heterogeneously dense, which may obscure small masses (category c / 51-75% glandular tissue). Current study was also evaluated with a Computer Aided Detection (CAD) system. There is a focal asymmetry in the left breast central to the nipple in the retroareolar region. This is more prominent. No other significant masses, calcifications, or other findings are seen in either breast. IMPRESSION: INCOMPLETE: NEEDS ADDITIONAL IMAGING EVALUATION The focal asymmetry in the left breast is indeterminate. Additional views with possible ultrasound are recommended. Based on the Tyrer Cuzick model (a risk assessment model) the patient's lifetime risk is 7.6% and her 10 year risk is 5.3%. According to the ACR, ACS, and NCCN guidelines, an annual breast MRI exam along with mammogram is recommended if the patient's lifetime risk is 20% or greater. This exam was interpreted at Station ID: [id number]. NOTE: For mammograms, a report in lay terms will be sent to the patient. Approximately 15% of breast malignancies will not be visualized mammographically. In the management of a palpable breast mass, a negative mammogram must not discourage biopsy of a clinically suspicious lesion. Electronically Signed By: Tre Savage M.D. lc/:03/11/2023 16:46:33 letter sent: Additional Imaging Needed ACR BI-RADS Category 0: Incomplete [id number]
== END ==
PROVIDERS: PCP Internal Medicine; Referring Provider Internal Medicine; Visit Provider Internal Medicine
DX: Z12.31 Encounter for screening mammogram for malignant neoplasm of breast (principal)
CPT/HCPCS: 77063; 77067

== ENCOUNTER → 2023-03-18 16:44 | Outpatient (CLI) | payer OTHER, SELFPAY ==
[2023-03-18 18:07] LABS: Alanine Aminotransferase 23 IU/L (<35); Albumin 4.3 g/dL (3.5-5.0); Albumin Globulin Ratio 1.5 (1.0-2.8); Alkaline Phosphatase 66 U/L (38-126); Aspartate Aminotransferase 29 IU/L (14-36); BUN Creatinine Ratio 21.5 (6-22); Bilirubin Total 0.4 mg/dL (0.2-1.3); Blood Urea Nitrogen 14 mg/dL (7-17); Calcium 9.1 mg/dL (8.4-10.2); Carbon Dioxide 27 mmol/L (22-32); Chloride 101 mmol/L (98-107); Estimated Glomerular Filt Rate > 60 mL/min (>60); Globulin 2.9 g/dL (1.7-4.1); Glucose 98 mg/dL (80-110); HEMOLYSIS < 15 (0-50); Potassium 3.8 mmol/L (3.4-5.1); Sodium 135 mmol/L (137-145); Total Protein 7.2 g/dL (6.3-8.2)
[2023-03-18 18:21] LABS: Free T3, Triiodothyronine Free 5.09 pg/mL (2.77-5.27)
[2023-03-18 18:42] LABS: Thyroid Stimulating Hormone < 0.015 uIU/mL (0.47-4.68)
== END ==
PROVIDERS: PCP Internal Medicine; Referring Provider Internal Medicine; Visit Provider Internal Medicine
DX: E03.9 Hypothyroidism, unspecified (principal); Z79.899 Other long term (current) drug therapy
CPT/HCPCS: 36415; 80053; 84439; 84443; 84481

== ENCOUNTER → 2023-03-21 13:25 | Outpatient (CLI) | payer OTHER, SELFPAY ==
[2023-03-22 13:26] LABS: Fecal Immunochemical Test Negative (Negative)
== END ==
PROVIDERS: PCP Internal Medicine; Referring Provider Internal Medicine; Visit Provider Internal Medicine
DX: Z12.11 Encounter for screening for malignant neoplasm of colon (principal)
CPT/HCPCS: 82274

== ENCOUNTER → 2023-03-30 11:58 | Outpatient (CLI) | payer OTHER, SELFPAY ==
--- NOTE | 2023-03-30 | DI.MG.S_ITS ---
UNILATERAL LEFT DIGITAL DIAGNOSTIC MAMMOGRAM 3D/2D WITH ADDITIONAL VIEWS: 03/30/2023 CLINICAL: Additional evaluation requested from prior study. Comparison is made to exams dated: 03/11/2023 mammogram and 07/26/2019 mammogram - [facility]. The left breast is heterogeneously dense, which may obscure small masses (category c / 51-75% glandular tissue). There is a focal asymmetry in the left breast central to the nipple in the retroareolar region. This is less prominent. No other significant masses or calcifications are seen in the breast. IMPRESSION: INCOMPLETE: NEEDS ADDITIONAL IMAGING EVALUATION The focal asymmetry in the left breast is indeterminate. A targeted ultrasound is recommended and will immediately follow. Based on the Tyrer Cuzick model (a risk assessment model) the patient's lifetime risk is 7.6% and her 10 year risk is 5.3%. According to the ACR, ACS, and NCCN guidelines, an annual breast MRI exam along with mammogram is recommended if the patient's lifetime risk is 20% or greater. This exam was interpreted at Station ID: [id number]. NOTE: For mammograms, a report in lay terms will be sent to the patient. Approximately 15% of breast malignancies will not be visualized mammographically. In the management of a palpable breast mass, a negative mammogram must not discourage biopsy of a clinically suspicious lesion. Electronically Signed By: Ky Benitez M.D. [facility] [place]/:03/30/2023 12:23:51 ACR BI-RADS Category 0: Incomplete [id number]
--- NOTE | 2023-03-30 11:59 | DI.US.S_ITS ---
LIMITED ULTRASOUND OF LEFT BREAST: 03/30/2023 CLINICAL: Patient returns today to evaluate a focal asymmetry in the left breast. Comparison is made to exams dated: 03/30/2023 mammogram, 03/11/2023 mammogram, 07/26/2019 mammogram - [facility], and 01/24/2018 mammogram - [facility]. Real-time ultrasound of the left breast retroareolar was performed. Villa scale images of the real-time examination were reviewed. No significant abnormalities were seen sonographically in the left breast. IMPRESSION: NEGATIVE There is no sonographic evidence of malignancy. A 1 year screening mammogram is recommended. Exam findings were conveyed to the patient. This exam was interpreted at Station ID: [id number]. Electronically Signed By: Ky Benitez M.D. slc/:03/30/2023 13:05:36 letter sent: Normal Exam Ultrasound BI-RADS: 1 Negative
== END ==
PROVIDERS: PCP Internal Medicine; Referring Provider Internal Medicine; Visit Provider Internal Medicine
DX: R92.8 Other abnormal and inconclusive findings on diagnostic imaging of breast (principal)
CPT/HCPCS: 76642; 77065; G0279

== ENCOUNTER → 2024-10-24 13:05 | Outpatient (CLI) | payer OTHER, SELFPAY ==
--- NOTE | 2024-10-24 13:09 | DI.MG.S_ITS ---
BILATERAL DIGITAL SCREENING MAMMOGRAM 3D/2D WITH CAD: 10/24/2024 CLINICAL: Routine screening. Comparison is made to exams dated: 03/11/2023 mammogram, 07/26/2019 mammogram - [facility], 01/24/2018 mammogram - [facility], and 03/30/2023 mammogram - [facility]. The breasts are heterogeneously dense, which may obscure small masses (category c / 51-75% glandular tissue). Current study was also evaluated with a Computer Aided Detection (CAD) system. No significant masses, calcifications, or other findings are seen in either breast. There has been no significant interval change. IMPRESSION: NEGATIVE There is no mammographic evidence of malignancy. A 1 year screening mammogram is recommended. Based on the Tyrer Cuzick model (a risk assessment model) the patient's lifetime risk is 7.2% and her 10 year risk is 5.4%. According to the ACR, ACS, and NCCN guidelines, an annual breast MRI exam along with mammogram is recommended if the patient's lifetime risk is 20% or greater. This exam was interpreted at Station ID: [id number]. NOTE: For mammograms, a report in lay terms will be sent to the patient. Approximately 15% of breast malignancies will not be visualized mammographically. In the management of a palpable breast mass, a negative mammogram must not discourage biopsy of a clinically suspicious lesion. Electronically Signed By: Jerrica Stearns M.D., Ph.D. justina/thomas:10/25/2024 20:10:06 letter sent: Normal Exam ACR BI-RADS Category 1: Negative
== END ==
PROVIDERS: PCP Nurse Practitioner Family; Referring Provider Nurse Practitioner Family; Visit Provider Nurse Practitioner Family
DX: Z12.31 Encounter for screening mammogram for malignant neoplasm of breast (principal); R92.333 Mammographic heterogeneous density, bilateral breasts
CPT/HCPCS: 77063; 77067

== ENCOUNTER → 2025-03-15 09:29 | Outpatient (CLI) | payer OTHER, SELFPAY | LOC: LAB 09:30 | PROVIDERS: PCP Nurse Practitioner Family; Referring Provider Psychiatry & Neurology Psychiatry; Visit Provider Psychiatry & Neurology Psychiatry | DX: Z79.899 Other long term (current) drug therapy (principal) | CPT/HCPCS: 36415; 80175 ==